=== PATIENT | male | born 1950 | race African-American/Black ===

== ENCOUNTER 2017-08-15 12:06 | Emergency (ER) | payer OTHER, MEDICAID ==
[2017-08-15] MEDS: diazePAM 5 MG TABLET PO ×6 (12:38→14:56)
[2017-08-15] MEDS: oxyCODONE/APAP 5/325 1 TAB TABLET PO ×2 (12:38)
[2017-08-15] MEDS: KETOROLAC 60 MG/2 ML INJ. IM ×2 (12:39)
[2017-08-15] MEDS: HYDROmorphone 2 MG/ML VIAL IM ×4 (13:15→14:57)
== END 2017-08-15 15:24 | disposition home or self-care (01) ==
LOC: ER 12:06
DX: S63.501A Unspecified sprain of right wrist, initial encounter (principal); M70.51 Other bursitis of knee, right knee; G89.29 Other chronic pain; M54.5 Low back pain; I10 Essential (primary) hypertension; Z88.1 Allergy status to other antibiotic agents; W01.0XXA Fall on same level from slipping, tripping and stumbling without subsequent striking against object, initial encounter; Y93.89 Activity, other specified; Y99.8 Other external cause status; Y92.89 Other specified places as the place of occurrence of the external cause
CPT/HCPCS: 73110; 73562; 74176; 93971; 96372; 99284-25; J1170; J1885

== ENCOUNTER 2017-08-20 16:30 | Emergency (ER) | payer OTHER | END 2017-08-20 16:56 | disposition home or self-care (01) | LOC: ER 16:30 | DX: M54.9 Dorsalgia, unspecified (principal); M25.561 Pain in right knee; M25.531 Pain in right wrist; I10 Essential (primary) hypertension; G89.29 Other chronic pain; G62.9 Polyneuropathy, unspecified; Z76.0 Encounter for issue of repeat prescription; Z86.19 Personal history of other infectious and parasitic diseases; Z88.1 Allergy status to other antibiotic agents | CPT/HCPCS: 99283 ==